=== PATIENT | female | born 1960 | race African-American/Black ===

== ENCOUNTER 2019-05-13 22:13 | Emergency (ER) | payer MEDICARE, MEDICAID ==
[~2019-05-13] VITALS: Ht 160 cm; Wt 97.7 kg
[~2019-05-13 22:13] MED LIST: CYCL-1 PO; CYCL10TA10 PO; METH4TAB3 PO; NAPR-56 PO
[2019-05-13 22:24] VITALS: BP 148/90
[2019-05-13] MEDS ORDERED: triamcinolone acetonide 40mg/ml inj IM ONE (23:45)
[2019-05-13] MEDS ORDERED: ketorolac tromethamine 15mg/ml inj. IM ONE (23:45)
== END 2019-05-14 00:32 | disposition home or self-care (01) ==
LOC: ER 22:14
DX: M54.42 Lumbago with sciatica, left side (principal); I10 Essential (primary) hypertension; G89.29 Other chronic pain; Z79.899 Other long term (current) drug therapy
CPT/HCPCS: 96372; 99283; J1885; J3301

== ENCOUNTER 2019-05-24 11:14 | Emergency (ER) | payer MEDICARE, MEDICAID ==
[~2019-05-24] VITALS: Ht 157.5 cm; Wt 112.7 kg
[2019-05-24 11:27] VITALS: BP 144/85
== END 2019-05-24 13:46 | disposition left against medical advice (07) ==
LOC: ER 11:14
DX: N95.0 Postmenopausal bleeding (principal); I10 Essential (primary) hypertension; G89.29 Other chronic pain; E89.0 Postprocedural hypothyroidism; Z79.899 Other long term (current) drug therapy; Z86.2 Personal history of diseases of the blood and blood-forming organs and certain disorders involving the immune mechanism
CPT/HCPCS: 99281

== ENCOUNTER 2019-07-14 07:55 | Emergency (ER) | payer MEDICARE, MEDICAID ==
[~2019-07-14] VITALS: Ht 160 cm; Wt 106.8 kg
[2019-07-14 08:00] VITALS: BP 164/87
--- NOTE | 2019-07-14 08:05 | NUR ---
Martha RN: LIZET Strauss at bedside.
[2019-07-14] MEDS ORDERED: LYR75C PO (08:10)
[2019-07-14] MEDS ORDERED: ketorolac trometh inj. 60 MG/2 ML VIAL IM ONE (08:10)
== END 2019-07-14 08:38 | disposition home or self-care (01) ==
LOC: ER 07:55
DX: G89.29 Other chronic pain (principal); M54.42 Lumbago with sciatica, left side; I10 Essential (primary) hypertension; E89.0 Postprocedural hypothyroidism; Z79.899 Other long term (current) drug therapy
CPT/HCPCS: 96372; 99283; J1885

== ENCOUNTER 2019-11-06 11:08 | Outpatient (CLI) | payer MEDICARE, MEDICAID ==
[~2019-11-06 11:08] MED LIST changes: +LYR75C PO
== END 2019-11-06 23:59 | disposition home or self-care (01) ==
LOC: RAD 11:08
DX: N85.8 Other specified noninflammatory disorders of uterus (principal)
CPT/HCPCS: 76830; 76856

== ENCOUNTER 2020-01-26 05:39 | Inpatient (IN) | payer MEDICARE, MEDICAID ==
[2020-01-20 11:22] LABS: BASOPHILS # (AUTO) 0.1 X10'3 (0-0.2); BASOPHILS % (AUTO) 1.4 % (0-1); EOSINOPHILS # (AUTO) 0.4 X10'3 (0-0.9); EOSINOPHILS % (AUTO) 4.6 % (0-6); LYMPHOCYTES # (AUTO) 2.4 X10'3 (1.1-4.8); LYMPHOCYTES % (AUTO) 27.8 % (21-51); MEAN CORPUSCULAR HEMOGLOBIN 29.6 PG (27.0-31.0); MEAN CORPUSCULAR HGB CONC 33.9 g/dL (33.0-36.5); MEAN CORPUSCULAR VOLUME 87.3 FL (78-98); MEAN PLATELET VOLUME 7.6 FL (7.4-10.4); MONOCYTES # (AUTO) 0.7 X10'3 (0-0.9); MONOCYTES % (AUTO) 8.5 % (2-12); NEUTROPHILS # (AUTO) 4.9 X10'3 (1.8-7.7); NEUTROPHILS % (AUTO) 57.7 % (42-75); PRE OP HEMATOCRIT 37.5 % (35.0-45.0); PRE OP HEMOGLOBIN 12.7 g/dL (12.0-16.0); PRE OP PLATELET COUNT 305 X10'3 (140-440); RED BLOOD COUNT 4.29 X10'6 (4.20-5.60); RED CELL DISTRIBUTION WIDTH 14.3 % (11.5-14.5)
[2020-01-20 11:24] LABS: COLOR,URINE STRAW (Yellow); GLUCOSE, URINE NEGATIVE (Neg); KETONES,URINE NEGATIVE (Neg); LEUKOCYTE ESTERASE ,URINE NEGATIVE (Neg); NITRITES, URINE NEGATIVE (Neg); OCCULT BLOOD,URINE SMALL (Neg); PROTEIN,URINE NEGATIVE (Neg); UROBILINOGEN,URINE 0.2 E.U/dL (0.2-1.0)
[2020-01-20 11:34] LABS: PRE OP INR 1.1 INR; PRE OP PROTIME 11.2 SECONDS (9.0-12.0)
[2020-01-20 11:36] LABS: ALBUMIN 3.3 G/DL (3.4-5.0); ALBUMIN/GLOBULIN RATIO 0.8 (1.1-1.5); ALKALINE PHOSPHATASE 84 IU/L (46-116); BLOOD UREA NITROGEN 11 MG/DL (7-18); BUN/CREATININE RATIO 13.4 (6.6-38.0); CALCIUM 9.3 MG/DL (8.5-10.1); CHLORIDE 105 MMOL/L (99-107); CREATININE 0.82 MG/DL (0.40-0.90); PRE OP ALT 24 U/L (30-65); PRE OP ANION GAP 5 (8-16); PRE OP AST 19 U/L (10-37); PRE OP BILIRUB, TOTAL 0.3 MG/DL (0.0-1.0); PRE OP GLUCOSE 88 MG/DL (70-104); PRE OP POTASSIUM 3.6 MMOL/L (3.4-5.1); PRE OP SODIUM 142 MMOL/L (135-145); TOTAL CARBON DIOXIDE 32.4 MMOL/L (24-32); TOTAL PROTEIN 7.2 G/DL (6.4-8.2); eGFR 87 ML/MIN
[2020-01-20 11:41] LABS: UA COLLECTION TYPE CLN CATCH MIDSTREAM
[2020-01-20 11:42] LABS: CLARITY,URINE SLIGHTLY CLOUDY (Clear)
[2020-01-20 11:43] LABS: BACTERIA,URINE 1+ /HPF (Neg); RBC,URINE 0-2 /HPF (0-2); SQUAMOUS EPITHELIAL CELL,UR MANY /LPF (FEW); WBC,URINE 0-4 /HPF (0-4)
[~2020-01-26] VITALS: Ht 160 cm; Wt 116.3 kg
[2020-01-26] VITALS (17 sets, daily range): BP systolic 107–138; BP diastolic 65–85
[~2020-01-26 05:39] MED LIST changes: -CYCL-1 PO; -CYCL10TA10 PO; +GABA-534 PO; +HYDR-3972 PO; +LISI40TA4 PO; -LYR75C PO; -METH4TAB3 PO; -NAPR-56 PO; +ceFOXitin sod/dextrose 2g/50ml 50 ML IV ONE; +famotidine 20mg tablet PO ONE; +ringers solution, lacted 1,000 ML IV SCH
[2020-01-26] MEDS ORDERED: BUPIVAcaine/PF 2.5 mg/ml (0.25%) 30ml vial ONE (06:40)
[2020-01-26] MEDS ORDERED: midazolam 2 mg/2 ml injection ONE (07:11)
[2020-01-26] MEDS ORDERED: LIDOcaine 2% (20mg/ml) 5ml vial ONE (07:12)
[2020-01-26] MEDS ORDERED: ketorolac trometh. 30mg/ml inj. ONE (07:12)
[2020-01-26] MEDS ORDERED: sevoflurane 250ml liquid IH ONE (07:12)
[2020-01-26] MEDS ORDERED: fentaNYL /PF 50mcg/ml 5ml ampule ONE (07:12)
[2020-01-26] MEDS ORDERED: neostigmine methylsulfate 1 MG/ML 10ml vial ONE (07:12)
[2020-01-26] MEDS ORDERED: propofol inj 20 ML IV ONE (07:12)
[2020-01-26] MEDS ORDERED: glycopyrrolate 0.2mg/ml inj ONE (07:12)
[2020-01-26] MEDS ORDERED: dexamethasone sod phosphate 4mg/ml inj. ONE (07:12)
[2020-01-26] MEDS ORDERED: rocuronium 10mg/ml inj IV ONE ×2 (07:22→10:09)
[2020-01-26] MEDS ORDERED: ondansetron/PF 4mg/2ml inj ONE (07:48)
[2020-01-26] MEDS ORDERED: ringers solution, lacted 1,000 ML IV SCH (08:56)
[2020-01-26] MEDS ORDERED: morphine 2 MG/ML inj. syringe IV PRN (09:00)
[2020-01-26] MEDS ORDERED: proCHLORperazine 10 MG/2 ml inj IV PRN (09:00)
[2020-01-26] MEDS ORDERED: meperidine/PF 25mg/ml syringe IV PRN ×3 (09:00)
[2020-01-26] MEDS ORDERED: ondansetron/PF 4mg/2ml inj IV PRN ×2 (09:00→11:45)
[2020-01-26] MEDS ORDERED: morphine 4 MG/ML inj SYRINge IV PRN (09:00)
[2020-01-26] MEDS ORDERED: morphine /PF 1mg/ml 10ml inj. ONE (10:05)
[2020-01-26] MEDS ORDERED: morphine 4 MG/ML inj SYRINge ONE (10:06)
[2020-01-26] MEDS ORDERED: albumin (Human) 5% 250ml 250 ML IV ONE ×2 (11:32)
[2020-01-26] MEDS ORDERED: acetaminophen 1,000mg/100ml IV 100 ML IV ONE (11:37)
[2020-01-26] MEDS ORDERED: HYDROcodone/acetaminophen 10/325mg tab PO PRN ×2 (11:45)
[2020-01-26] MEDS ORDERED: bisacodyl 10mg suppository rectal RC PRN (11:45)
[2020-01-26] MEDS ORDERED: CADD PCA waste documentation MC PRN (11:45)
[2020-01-26] MEDS ORDERED: metoclopramide 5 mg/ml inj IV PRN (11:45)
[2020-01-26] MEDS ORDERED: normal saline 500ml IV soln 500 ML IV PRN (11:45)
[2020-01-26] MEDS ORDERED: temazepam 15mg capsule PO PRN (11:45)
[2020-01-26] MEDS ORDERED: magnesium hydroxide 30ml (MOM) UD suspension PO PRN (11:45)
[2020-01-26] MEDS ORDERED: naloxone 0.4 mg/ml inj IV PRN (11:45)
[2020-01-26] MEDS ORDERED: mag hydrox/Alum hydrox/simeth 30ml oral suspension PO PRN (11:45)
--- NOTE | 2020-01-26 12:03 | NUR ---
Received from OR via , accompanied by Anesthesiologist DR JIMENEZ and report given by Anesthesiolgist. AWAKENS TO VOICE. VITALS STABLE. DRESSINGS DI. AUDREY PAIN. MARKS WITH CLEAR URINE.
[2020-01-26] MEDS: morphine/NS 5 mg/ml CADD 50 ML IV SCH ×7 (12:35→23:00)
--- NOTE | 2020-01-26 13:13 | NUR ---
Report called to receiving nurse. Transferred via BED Belongings . Special Issues communicated to receiving nurse. AWAKE AND ORIENTED. VITALS STABLE. DRESSINGS DI. STATES MINIMAL ABD PAIN. TO SURGICAL RM 355B AT THIS TIME.
[2020-01-26] MEDS: ringers solution, lacted 1,000 ML IV SCH ×3 (13:38→23:34)
--- NOTE | 2020-01-26 14:11 | NUR ---
Patient on the unit, sleeping, chest rising and falling. CADD pump reset to correct dosage, verified with 2 RNs: Enoch CHAUDHRY and myself.
[2020-01-26] MEDS: ibuprofen 200mg tablet PO SCH ×2 (14:41→20:02)
[2020-01-26] MEDS: simethicone 80mg chew tab PO SCH ×2 (15:39→19:48)
[2020-01-26] MEDS: ceFAZolin 1GM/D5W- ADD-VANTAGE 50 ML IV SCH ×2 (15:59→23:39)
--- NOTE | 2020-01-26 18:20 | NUR ---
Problems reprioritized. Patient report given, questions answered & plan of care reviewed with Soni CHAUDHRY.
--- NOTE | 2020-01-26 18:24 | NUR ---
Patient in room [facility]. I have received report from Penny CHAUDHRY and had the opportunity to ask questions and assume patient care.
[2020-01-26] MEDS ORDERED: HYDROcodone/acetaminophen 10/325mg tab PO SCH (20:00)
[2020-01-26] MEDS: docusate sod 100mg capsule PO SCH (20:02)
[2020-01-26] MEDS: gabapentin 400mg capsule PO SCH (20:27)
[2020-01-27] VITALS: BP 97/52
[2020-01-27] MEDS: morphine/NS 5 mg/ml CADD 50 ML IV SCH ×6 (01:00→11:00)
[2020-01-27] MEDS: ibuprofen 200mg tablet PO SCH ×4 (01:20→19:34)
--- NOTE | 2020-01-27 06:00 | NUR ---
Patient in room [facility]. I have received report from RICHA Shafer and had the opportunity to ask questions and assume patient care.
[2020-01-27 06:13] LABS: BASOPHILS % (AUTO) 0.3 % (0-1); EOSINOPHILS % (AUTO) 0.4 % (0-6); HEMOGLOBIN 8.8 g/dl (12.0-16.0); LYMPHOCYTES # (AUTO) 2.9 X10'3 (1.1-4.8); LYMPHOCYTES % (AUTO) 22.2 % (21-51); MEAN CORPUSCULAR HEMOGLOBIN 29.6 PG (27.0-31.0); MEAN CORPUSCULAR HGB CONC 33.8 g/dL (33.0-36.5); MEAN CORPUSCULAR VOLUME 87.6 FL (78-98); MEAN PLATELET VOLUME 7.5 FL (7.4-10.4); MONOCYTES # (AUTO) 1.4 X10'3 (0-0.9); MONOCYTES % (AUTO) 10.4 % (2-12); NEUTROPHILS # (AUTO) 8.7 X10'3 (1.8-7.7); NEUTROPHILS % (AUTO) 66.7 % (42-75); PLATELET COUNT 213 X10'3 (140-440); RED BLOOD COUNT 2.97 X10'6 (4.20-5.60); RED CELL DISTRIBUTION WIDTH 14.5 % (11.5-14.5)
[2020-01-27 06:23] LABS: ALANINE AMINOTRANSFERASE 24 U/L (12-78); ALKALINE PHOSPHATASE 52 IU/L (46-116); ANION GAP 4 (8-16); ASPARTATE AMINO TRANSFERASE 23 U/L (10-37); BILIRUBIN,TOTAL 0.5 MG/DL (0.1-1.0); BLOOD UREA NITROGEN 17 MG/DL (7-18); CALCIUM 7.9 MG/DL (8.5-10.1); CHLORIDE 106 MMOL/L (99-107); GLUCOSE 98 MG/DL (70-104); POTASSIUM 3.8 MMOL/L (3.5-5.1); SODIUM 140 MMOL/L (135-145); TOTAL CARBON DIOXIDE 29.9 MMOL/L (24-32); TOTAL PROTEIN 5.9 G/DL (6.4-8.2); eGFR 37 ML/MIN
--- NOTE | 2020-01-27 06:39 | NUR ---
Problems reprioritized. Patient report given, questions answered & plan of care reviewed with Scott CHAUDHRY. Patients' F/C dc'd at 0500. Patient then ambulated 1 lap around surgical floor and went to bathroom. No void thus far.
[2020-01-27] MEDS: ceFAZolin 1GM/D5W- ADD-VANTAGE 50 ML IV SCH (07:13)
[2020-01-27] MEDS: simethicone 80mg chew tab PO SCH ×3 (07:14→17:41)
[2020-01-27] MEDS: ringers solution, lacted 1,000 ML IV SCH ×2 (07:14→19:43)
[2020-01-27] MEDS: docusate sod 100mg capsule PO SCH ×2 (07:14→19:34)
[2020-01-27] MEDS: gabapentin 400mg capsule PO SCH ×3 (07:14→19:35)
[2020-01-27] MEDS: lisinopril 20mg tablet PO SCH (07:40)
[2020-01-27 08:56] VITALS: BP 93/53
[2020-01-27 12:40] VITALS: BP 116/58
[2020-01-27] MEDS ORDERED: oxyCODONE/APAP 10/325mg tablet PO PRN (13:30)
[2020-01-27] MEDS: oxyCODONE/APAP 10/325mg tablet PO PRN ×2 (13:34→19:38)
--- NOTE | 2020-01-27 18:15 | NUR ---
Problems reprioritized. Patient report given, questions answered & plan of care reviewed with RICHA Shafer.
--- NOTE | 2020-01-27 18:15 | NUR ---
Patient in room [facility]. I have received report from Scott Kapoor and had the opportunity to ask questions and assume patient care.
[2020-01-27 20:00] VITALS: BP 125/68
[2020-01-28] VITALS: BP 111/57
[2020-01-28] MEDS: ibuprofen 200mg tablet PO SCH ×4 (01:15→19:50)
[2020-01-28] MEDS: oxyCODONE/APAP 10/325mg tablet PO PRN ×4 (01:18→19:51)
[2020-01-28] MEDS: ringers solution, lacted 1,000 ML IV SCH ×3 (03:43→12:56)
[2020-01-28 05:40] LABS: BASOPHILS % (AUTO) 0.3 % (0-1); EOSINOPHILS # (AUTO) 0.4 X10'3 (0-0.9); EOSINOPHILS % (AUTO) 2.7 % (0-6); HEMATOCRIT 25.3 % (35.0-45.0); HEMOGLOBIN 8.5 g/dl (12.0-16.0); LYMPHOCYTES # (AUTO) 2.9 X10'3 (1.1-4.8); LYMPHOCYTES % (AUTO) 21.1 % (21-51); MEAN CORPUSCULAR HEMOGLOBIN 29.2 PG (27.0-31.0); MEAN CORPUSCULAR HGB CONC 33.4 g/dL (33.0-36.5); MEAN CORPUSCULAR VOLUME 87.5 FL (78-98); MEAN PLATELET VOLUME 7.7 FL (7.4-10.4); MONOCYTES # (AUTO) 1.2 X10'3 (0-0.9); MONOCYTES % (AUTO) 8.9 % (2-12); NEUTROPHILS # (AUTO) 9.2 X10'3 (1.8-7.7); PLATELET COUNT 211 X10'3 (140-440); RED BLOOD COUNT 2.89 X10'6 (4.20-5.60); RED CELL DISTRIBUTION WIDTH 14.3 % (11.5-14.5); WHITE BLOOD COUNT 13.8 X10'3 (4.5-11.0)
--- NOTE | 2020-01-28 06:00 | NUR ---
Patient in room [facility]. I have received report from RICHA Shafer and had the opportunity to ask questions and assume patient care.
[2020-01-28 06:01] LABS: ALANINE AMINOTRANSFERASE 22 U/L (12-78); ALBUMIN 3.1 G/DL (3.4-5.0); ALBUMIN/GLOBULIN RATIO 0.9 (1.1-1.5); ALKALINE PHOSPHATASE 57 IU/L (46-116); ANION GAP 7 (8-16); ASPARTATE AMINO TRANSFERASE 31 U/L (10-37); BILIRUBIN,TOTAL 0.4 MG/DL (0.1-1.0); BLOOD UREA NITROGEN 21 MG/DL (7-18); BUN/CREATININE RATIO 17.5 (6.6-38.0); CALCIUM 8.1 MG/DL (8.5-10.1); CHLORIDE 107 MMOL/L (99-107); GLUCOSE 113 MG/DL (70-104); POTASSIUM 3.9 MMOL/L (3.5-5.1); SODIUM 143 MMOL/L (135-145); TOTAL CARBON DIOXIDE 29.3 MMOL/L (24-32); TOTAL PROTEIN 6.4 G/DL (6.4-8.2); eGFR 56 ML/MIN
--- NOTE | 2020-01-28 06:15 | NUR ---
Problems reprioritized. Patient report given, questions answered & plan of care reviewed with Scott CHAUDHRY.
[2020-01-28] MEDS: lisinopril 20mg tablet PO SCH (08:00)
[2020-01-28] MEDS: simethicone 80mg chew tab PO SCH ×3 (08:12→17:36)
[2020-01-28] MEDS: gabapentin 400mg capsule PO SCH ×2 (08:12→19:50)
[2020-01-28] MEDS: docusate sod 100mg capsule PO SCH ×2 (08:12→19:51)
[2020-01-28 09:16] VITALS: BP 100/55
[2020-01-28 11:26] VITALS: BP 98/57
[2020-01-28] MEDS: normal saline 1000ml 1,000 ML IV SCH (13:21)
[2020-01-28] MEDS: LORazepam 2 mg/ml vial IV PRN ×2 (13:22→23:04)
[2020-01-28] MEDS ORDERED: magnesium hydroxide 30ml (MOM) UD suspension PO ONE (14:00)
[2020-01-28] MEDS ORDERED: iron sucrose complex injection 200 MG in normal saline 100ml IV soln 100 ML IV ONE (14:00)
[2020-01-28] MEDS ORDERED: cefazolin/dext.iso 2gm/50ml 50 ML IV ONE (16:00)
[2020-01-28] MEDS ORDERED: ceFAZolin 1GM/D5W- ADD-VANTAGE 50 ML IV ONE (16:00)
--- NOTE | 2020-01-28 18:00 | NUR ---
Problems reprioritized. Patient report given, questions answered & plan of care reviewed with RICHA Rutherford.
[2020-01-28 20:00] VITALS: BP 132/72
[2020-01-29] VITALS: BP 112/69
[2020-01-29] MEDS: normal saline 1000ml 1,000 ML IV SCH ×2 (01:35→07:45)
[2020-01-29] MEDS: ibuprofen 200mg tablet PO SCH ×2 (02:14→07:44)
[2020-01-29] MEDS: oxyCODONE/APAP 10/325mg tablet PO PRN ×2 (02:14→07:48)
[2020-01-29 06:17] LABS: BASOPHILS % (AUTO) 0.3 % (0-1); EOSINOPHILS # (AUTO) 0.5 X10'3 (0-0.9); EOSINOPHILS % (AUTO) 4.5 % (0-6); HEMATOCRIT 22.7 % (35.0-45.0); HEMOGLOBIN 7.5 g/dl (12.0-16.0); LYMPHOCYTES # (AUTO) 2.9 X10'3 (1.1-4.8); LYMPHOCYTES % (AUTO) 24.5 % (21-51); MEAN CORPUSCULAR HEMOGLOBIN 29.2 PG (27.0-31.0); MEAN CORPUSCULAR HGB CONC 33.1 g/dL (33.0-36.5); MEAN CORPUSCULAR VOLUME 88.4 FL (78-98); MONOCYTES % (AUTO) 8.5 % (2-12); NEUTROPHILS # (AUTO) 7.4 X10'3 (1.8-7.7); NEUTROPHILS % (AUTO) 62.2 % (42-75); PLATELET COUNT 203 X10'3 (140-440); RED BLOOD COUNT 2.57 X10'6 (4.20-5.60); RED CELL DISTRIBUTION WIDTH 14.4 % (11.5-14.5); WHITE BLOOD COUNT 11.9 X10'3 (4.5-11.0)
[2020-01-29 06:36] LABS: ALANINE AMINOTRANSFERASE 23 U/L (12-78); ALBUMIN 2.7 G/DL (3.4-5.0); ALBUMIN/GLOBULIN RATIO 0.9 (1.1-1.5); ALKALINE PHOSPHATASE 53 IU/L (46-116); ANION GAP 5 (8-16); ASPARTATE AMINO TRANSFERASE 29 U/L (10-37); BILIRUBIN,TOTAL 0.3 MG/DL (0.1-1.0); BLOOD UREA NITROGEN 7 MG/DL (7-18); BUN/CREATININE RATIO 9.3 (6.6-38.0); CHLORIDE 109 MMOL/L (99-107); CREATININE 0.75 MG/DL (0.40-0.90); GLUCOSE 91 MG/DL (70-104); POTASSIUM 3.9 MMOL/L (3.5-5.1); SODIUM 145 MMOL/L (135-145); TOTAL CARBON DIOXIDE 30.7 MMOL/L (24-32); TOTAL PROTEIN 5.8 G/DL (6.4-8.2); eGFR > 90 ML/MIN
--- NOTE | 2020-01-29 06:58 | NUR ---
Patient in room [facility]. I have received report from Sangeeta CHAUDHRY and had the opportunity to ask questions and assume patient care.
[2020-01-29] MEDS: simethicone 80mg chew tab PO SCH ×2 (07:44→12:44)
[2020-01-29] MEDS: docusate sod 100mg capsule PO SCH (07:44)
[2020-01-29] MEDS: gabapentin 400mg capsule PO SCH (07:44)
[2020-01-29] MEDS: lisinopril 20mg tablet PO SCH (07:45)
[2020-01-29 08:00] VITALS: BP 123/69
[2020-01-29 11:00] VITALS: BP 148/81
--- NOTE | 2020-01-29 13:15 | NUR ---
Pt DC to home with her family. Pt is A & O, stable, and in no apparent distress. Pt states understanding of all DC orders and is able to change abd bandage. Pt states she has her grown kids that are going to care for her. Pt packed all of her belongings and carried them with her. Pt is been wheeled out to front via wheel chair.
--- NOTE | 2020-02-09 09:49 | NUR ---
Case Management DC follow up: spoke to pt via telephone. S/P:abd hysterectomy Reports: "doing okay, moving around slowly". Denies: acute cp, SOB, resp distress, vertigo, syncope,weakness, blurry vision, N/V, GUTIERREZ, emergent general pain, abd tenderness/distension, fever. Denies s/s of infection to surg site. "stitches starting to itch". Verbalizes understanding of s/s that warrant 9-11/ER visit for evaluation. Verbalizes understanding of Rx and why prescribed, resumes current Rx/taking as ordered, no ase r/t polypharmacy. Acknowledges need to schedule/keep follow up appts w/ PCP Ct[facility] or [facility], Dr Haynes 02/10/20. Needs met, questions answered at CT, no further questions at this time. Addendum: 02/09/20 at 0957 by Fiordaliza Latham RN pt states does have some BLE swelling, non pitting, advised to elevate. Pt states has had swelling previously off and on. some swelling of the abd, r/t surgery. pt will be follow up w/Dr Haynes tomorrow and agrees to make of list of all questions, concerns before appt
== END 2020-01-29 13:14 | disposition home or self-care (01) | DRG 742 ==
LOC: PAS 05:39 → SUR 3N 11:43
PROVIDERS: ADMIT Obstetrics & Gynecology; ATTEND Obstetrics & Gynecology
PROC: 0UT74ZZ Resection of Bilateral Fallopian Tubes, Percutaneous Endoscopic Approach (ICD-10-PCS; 2020-01-26)
PROC: 0UT24ZZ Resection of Bilateral Ovaries, Percutaneous Endoscopic Approach (ICD-10-PCS; 2020-01-26)
PROC: 0DNW4ZZ Release Peritoneum, Percutaneous Endoscopic Approach (ICD-10-PCS; 2020-01-26)
PROC: 8E0W4CZ Robotic Assisted Procedure of Trunk Region, Percutaneous Endoscopic Approach (ICD-10-PCS; 2020-01-26)
PROC: 0TJB8ZZ Inspection of Bladder, Via Natural or Artificial Opening Endoscopic (ICD-10-PCS; 2020-01-26)
PROC: 0UT94ZZ Resection of Uterus, Percutaneous Endoscopic Approach (ICD-10-PCS; principal; 2020-01-26 07:12)
DX: D25.9 Leiomyoma of uterus, unspecified (principal); D62 Acute posthemorrhagic anemia; Z68.42 Body mass index [BMI] 45.0-49.9, adult; N95.0 Postmenopausal bleeding; R19.00 Intra-abdominal and pelvic swelling, mass and lump, unspecified site; N73.6 Female pelvic peritoneal adhesions (postinfective); I10 Essential (primary) hypertension; E66.9 Obesity, unspecified; Z79.899 Other long term (current) drug therapy
CPT/HCPCS: 36415; 80053; 81001; 82948; 85025; 85610; 85730; 86885; 86900; 86901; 86920; 87081; 88307; 93005; A4618; A7000; C1758; G0378; J0131; J0690; J0694; J1100; J1756; J1885; J2001; J2060; J2175; J2250; J2270; J2405; J2704; J2710; J3010; J3490; J7030; J7120; P9045

== ENCOUNTER 2021-05-13 19:25 | Emergency (ER) | payer MEDICARE, MEDICAID ==
[~2021-05-13] VITALS: Ht 160 cm; Wt 102.3 kg
[~2021-05-13 19:25] MED LIST changes: +LISI40TA13 PO; -LISI40TA4 PO; -ceFOXitin sod/dextrose 2g/50ml 50 ML IV ONE; -famotidine 20mg tablet PO ONE; -ringers solution, lacted 1,000 ML IV SCH
[2021-05-13 19:37] VITALS: BP 126/83
[2021-05-13] MEDS ORDERED: acetaminophen 325mg tablet PO ONE (19:45)
[2021-05-13] MEDS ORDERED: dexamethasone sod phosphate 10mg/ml inj PO STA (21:29)
[2021-05-13] MEDS ORDERED: DEXA6TAB6 PO (22:01)
[2021-05-13] MEDS ORDERED: ALB0.5UD IH (22:01)
[2021-05-15] MEDS ORDERED: LISI20TA28 PO (12:32)
[2021-05-15] MEDS ORDERED: CHLO25TA10 PO (12:32)
[2021-05-15] MEDS ORDERED: OXYC1TAB17 PO (12:32)
== END 2021-05-13 22:11 | disposition home or self-care (01) ==
LOC: ER 19:26
DX: U07.1 COVID-19 (principal); R06.02 Shortness of breath; I10 Essential (primary) hypertension; G89.29 Other chronic pain; Z86.2 Personal history of diseases of the blood and blood-forming organs and certain disorders involving the immune mechanism; Z79.899 Other long term (current) drug therapy
CPT/HCPCS: 87635; 99283; C9803; J1100